=== PATIENT | female | born 2005 ===

== ENCOUNTER 2023-08-22 22:00 | Emergency (ER) | payer SELFPAY ==
[2023-08-22 22:04] VITALS: BP 117/58; PULSE 117; RESP 20; TEMP 37.2; O2SAT 99
--- NOTE | 2023-08-22 23:41 | PC.NURSE ---
Patient, accompanied by friend, states she is going to leave to go where her mom is.
== END 2023-08-23 00:21 | disposition left against medical advice (07) ==
LOC: ANHED 08-23 00:07
DX: M54.50 Low back pain, unspecified (principal)
CPT/HCPCS: 99199